=== PATIENT | female | born 1995 | race Caucasian/White ===

== ENCOUNTER → 2019-07-10 | Outpatient (CLI) | payer OTHER | LOC: LAB 18:56 | DX: R30.0 Dysuria (principal) ==

== ENCOUNTER 2023-06-29 13:01 | Outpatient (RCR) | payer MEDICAID | END 2023-07-15 | disposition home or self-care (01) | LOC: PT | DX: M54.6 Pain in thoracic spine (principal) ==

== ENCOUNTER 2023-07-21 08:00 | Outpatient (RCR) | payer MEDICAID | END 2023-08-15 | LOC: PT | DX: M54.6 Pain in thoracic spine (principal) ==

== ENCOUNTER 2023-10-13 17:52 | Emergency (ER) | payer MEDICAID ==
[~2023-10-13 17:52] MED LIST: Amoxicillin 250 MG CAP PO ONE; NS 1,000 ML IV ONE; Ondansetron 4 MG/2 ML VIAL IV ONE; Promethazine 50 MG/ML 1 ML VIAL IM ONE
[2023-11-29 12:19] LABS: PH-URINE 6.5 (5.0 - 8.0); URINE APPEARANCE CLEAR (CLEAR); URINE BILIRUBIN NEGATIVE (NEGATIVE); URINE BLOOD NEGATIVE (NEGATIVE); URINE COLOR YELLOW (YELLOW); URINE GLUCOSE NEGATIVE (NEGATIVE); URINE KETONE TRACE (NEGATIVE); URINE LEUKOCYTE ESTERASE NEGATIVE (NEGATIVE); URINE MUCUS PRESENT (NOT PRESENT); URINE NITRATE NEGATIVE (NEGATIVE); URINE PROTEIN(semi-quant) TRACE (NEGATIVE)
[2023-11-29 12:20] LABS: CALCIUM 8.9 mg/dL (8.3-10.5); EOS # 0.01 K/mm3 (0.04-0.40); EOS % 0.1 % (1.0-5.0); HEMATOCRIT 41.9 % (37.0-47.0); HEMOGLOBIN 14.3 g/dL (12.5-16.0); LYMPH# 1.02 K/mm3 (1.50-4.00); MEAN CELL VOLUME 90 fl (78-100); MEAN CORPUSCULAR HEMOGLOBIN 31 pg (27-31); MEAN CORPUSCULAR HGB CONC 34 g/dL (33-37); MEAN PLATELET VOLUME 9.9 fl (7.4-10.4); MONO # 0.38 K/mm3 (0.20-0.80); NEU # 7.77 K/mm3 (1.40-6.50); PLATELET COUNT 205 K/mm3 (130-400); RED BLOOD COUNT 4.66 M/mm3 (4.10-5.30); RED CELL DISTRIBUTION WIDTH 12.9 % (11.5-14.5); TOTAL BILIRUBIN 0.6 mg/dL (0.2-1.2); TOTAL PROTEIN 6.9 g/dL (6.4-8.3); WHITE BLOOD COUNT 9.2 K/mm3 (4.8-10.8)
== END 2023-10-13 19:38 | disposition home or self-care (01) ==
LOC: ED 17:52
PROVIDERS: Family Medicine
DX: N39.0 Urinary tract infection, site not specified (principal); R11.2 Nausea with vomiting, unspecified
CPT/HCPCS: J2405; J2550; J7030